=== PATIENT | male | born 1945 | race Caucasian/White ===

== ENCOUNTER 2016-12-03 13:54 | Outpatient (CLI) | payer MEDICARE, OTHER | END 2016-12-03 13:55 | disposition home or self-care (01) | DX: I10 Essential (primary) hypertension (principal); E87.1 Hypo-osmolality and hyponatremia; I25.10 Atherosclerotic heart disease of native coronary artery without angina pectoris ==

== ENCOUNTER 2016-12-07 08:38 | Outpatient (CLI) | payer MEDICARE, OTHER | END 2016-12-07 08:39 | disposition home or self-care (01) | DX: E87.1 Hypo-osmolality and hyponatremia (principal); E78.5 Hyperlipidemia, unspecified ==

== ENCOUNTER 2016-12-24 08:40 | Outpatient (CLI) | payer MEDICARE, OTHER | END 2016-12-24 08:41 | disposition home or self-care (01) | DX: E87.1 Hypo-osmolality and hyponatremia (principal); T50.905A Adverse effect of unspecified drugs, medicaments and biological substances, initial encounter; I44.7 Left bundle-branch block, unspecified; E78.00 Pure hypercholesterolemia, unspecified; I25.2 Old myocardial infarction; I25.119 Atherosclerotic heart disease of native coronary artery with unspecified angina pectoris ==

== ENCOUNTER 2017-03-11 08:47 | Outpatient (CLI) | payer MEDICARE, OTHER | END 2017-03-11 08:48 | disposition home or self-care (01) | DX: E87.1 Hypo-osmolality and hyponatremia (principal); E78.00 Pure hypercholesterolemia, unspecified; T50.905A Adverse effect of unspecified drugs, medicaments and biological substances, initial encounter; I44.7 Left bundle-branch block, unspecified; I25.119 Atherosclerotic heart disease of native coronary artery with unspecified angina pectoris ==

== ENCOUNTER 2017-12-05 08:00 | Outpatient (CLI) | payer MEDICARE, OTHER ==
[2017-12-05 13:09] LABS: ALT ALANINE AMINOTRANSFERASE 14 IU/L (10-60); AST ASPARTATE AMINOTRANSFERASE 21 IU/L (10-42); BUN - BLOOD UREA NITROGEN 10 mg/dL (6-20); CALCIUM 8.9 mg/dL (8.5-10.3); CARBON DIOXIDE - CO2 27 mmol/L (21-32); CHLORIDE 95 mmol/L (101-111); CHOL/HDL RATIO 2.8 (<5.0); CHOLESTEROL 148 mg/dL; CREATININE 0.9 mg/dL (0.6-1.2); GFR - MDRD 83 (>89); GLUCOSE 98 mg/dL (70-100); HDL CHOLESTEROL 53 mg/dL; LDL CHOLESTEROL,CALCULATED 82 mg/dL; LDL/HDL RATIO 1.5 (<3.6); SODIUM 129 mmol/L (135-145); VLDL CHOLESTEROL 13 mg/dL
== END 2017-12-05 08:01 | disposition home or self-care (01) ==
LOC: LAB.WCP 08:00
PROVIDERS: ATTEND Internal Medicine Cardiovascular Disease
DX: E78.00 Pure hypercholesterolemia, unspecified (principal)
CPT/HCPCS: 36415; 80048; 80061; 84450; 84460

== ENCOUNTER 2018-08-13 09:06 | Outpatient (CLI) | payer MEDICARE, OTHER ==
--- NOTE | 2018-08-13 11:48 | MRI Report ---
Reason: OTHER SPECIFIED JOINT DISORDERS, RIGHT KNEE Procedure Date: 08/13/2018 Accession Number: [id number] / [id number] Procedure: MRI - Knee RT W/O CPT Code: FULL RESULT: EXAM: RIGHT KNEE MRI WITHOUT CONTRAST EXAM DATE: 08/13/2018 10:52 AM. CLINICAL HISTORY: Other specified joint disorders, right knee. COMPARISON: Right knee radiographs 07/23/2018. TECHNIQUE: Multiplanar, multisequence T1-weighted and fluid-sensitive sequences of the knee without contrast. Other: None. FINDINGS: Bones: Small degenerative subcortical cyst in the medial femoral epicondyle. Alignment normal. No fracture or marrow edema. 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 Medial Meniscus: The medial meniscus is intact. Lateral Meniscus: The lateral meniscus is intact. Cruciate Ligaments: The anterior and posterior cruciate ligaments are intact. Collateral Ligaments: The medial collateral and lateral collateral ligamentous structures are intact. Tendons: The quadriceps, patellar, semimembranosus, and popliteus tendons are unremarkable. Musculature: No edema or fatty atrophy. Soft Tissues: Again seen is a 5 x 3 cm calcified lesion in the infrapatellar bursa with adjacent soft tissue edema, unchanged from prior x-rays and consistent with calcific infrapatellar bursitis. No significant joint effusion. IMPRESSION: 1. Stable 5 x 3 cm calcified lesion consistent with infrapatellar calcified bursitis. 2. No evidence of internal derangement. 3. 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 [facility] MUSCULOSKELETAL RADIOLOGY SECTION
== END 2018-08-13 09:07 | disposition home or self-care (01) ==
LOC: DI 09:06
PROVIDERS: ATTEND Orthopaedic Surgery Sports Medicine
DX: M70.51 Other bursitis of knee, right knee (principal); M94.261 Chondromalacia, right knee

== ENCOUNTER 2018-10-01 11:04 | Outpatient (CLI) | payer MEDICARE, OTHER ==
[2018-10-01 18:48] LABS: BASOPHILS % (AUTO) 0.8 %; EOSINOPHILS # (AUTO) 0.1 10^3/uL (0.0-0.7); EOSINOPHILS % (AUTO) 1.7 %; HGB - HEMOGLOBIN 13.7 g/dL (14.0-18.0); LYMPHOCYTES # (AUTO) 1.5 10^3/uL (1.5-3.5); LYMPHOCYTES % (AUTO) 37.2 %; MEAN CORPUSCULAR HEMOGLOBIN 30.9 pg (27.0-31.0); MEAN CORPUSCULAR VOLUME 90.8 fL (80.0-94.0); MEAN PLATELET VOLUME 8.5 fL (7.4-11.4); MONOCYTES # (AUTO) 0.5 10^3/uL (0.0-1.0); MONOCYTES % (AUTO) 12.4 %; NEUTROPHILS % (AUTO) 47.9 %; PLT - PLATELET COUNT 209 10^3/uL (130-450); RED BLOOD COUNT 4.43 10^6/uL (4.70-6.10); RED CELL DISTRIBUTION WIDTH 13.3 % (12.0-15.0); WHITE BLOOD COUNT 4.1 x10^3/uL (4.8-10.8)
[2018-10-01 19:14] LABS: ALBUMIN 3.8 g/dL (3.2-5.5); ALBUMIN/GLOBULIN RATIO 1.3 (1.0-2.2); BILIRUBIN,TOTAL 0.8 mg/dL (0.2-1.0); CALCIUM 8.7 mg/dL (8.5-10.3); CREATININE 0.9 mg/dL (0.6-1.2); TOTAL PROTEIN 6.7 g/dL (6.7-8.2)
== END 2018-10-01 23:59 | disposition home or self-care (01) ==
LOC: LAB.WCP 11:04
PROVIDERS: ATTEND Family Medicine
DX: M79.10 Myalgia, unspecified site (principal)
CPT/HCPCS: 36415; 80053; 82550; 82553; 85025

== ENCOUNTER 2018-12-19 08:05 | Outpatient (CLI) | payer MEDICARE, OTHER ==
[2018-12-19 08:43] LABS: CHOL/HDL RATIO 3.9 (<5.0); CHOLESTEROL 205 mg/dL; HDL CHOLESTEROL 52 mg/dL; LDL CHOLESTEROL,CALCULATED 142 mg/dL; LDL/HDL RATIO 2.7 (<3.6); VLDL CHOLESTEROL 11 mg/dL
== END 2018-12-19 08:06 | disposition home or self-care (01) ==
LOC: LAB 08:05
PROVIDERS: ATTEND Internal Medicine Cardiovascular Disease
DX: E78.00 Pure hypercholesterolemia, unspecified (principal); I25.119 Atherosclerotic heart disease of native coronary artery with unspecified angina pectoris
CPT/HCPCS: 36415; 80061; 83721

== ENCOUNTER 2019-01-05 08:32 | Outpatient (CLI) | payer MEDICARE, OTHER ==
[2019-01-05 08:44] LABS: BASOPHILS % (AUTO) 0.9 %; EOSINOPHILS # (AUTO) 0.1 10^3/uL (0.0-0.7); EOSINOPHILS % (AUTO) 2.2 %; HGB - HEMOGLOBIN 13.7 g/dL (14.0-18.0); LYMPHOCYTES # (AUTO) 1.4 10^3/uL (1.5-3.5); LYMPHOCYTES % (AUTO) 34.8 %; MEAN CORPUSCULAR HEMOGLOBIN 30.8 pg (27.0-31.0); MEAN CORPUSCULAR HGB CONC 34.3 g/dL (32.0-36.0); MEAN CORPUSCULAR VOLUME 89.7 fL (80.0-94.0); MEAN PLATELET VOLUME 7.4 fL (7.4-11.4); MONOCYTES # (AUTO) 0.5 10^3/uL (0.0-1.0); MONOCYTES % (AUTO) 13.9 %; NEUTROPHILS # (AUTO) 1.9 10^3/uL (1.5-6.6); NEUTROPHILS % (AUTO) 48.2 %; PLT - PLATELET COUNT 191 10^3/uL (130-450); RED BLOOD COUNT 4.46 10^6/uL (4.70-6.10); WHITE BLOOD COUNT 3.9 x10^3/uL (4.8-10.8)
[2019-01-05 09:03] LABS: BUN - BLOOD UREA NITROGEN 12 mg/dL (6-20); CALCIUM 8.7 mg/dL (8.5-10.3); CARBON DIOXIDE - CO2 27 mmol/L (21-32); CHLORIDE 94 mmol/L (101-111); CHOL/HDL RATIO 3.1 (<5.0); CHOLESTEROL 153 mg/dL; CREATININE 0.9 mg/dL (0.6-1.2); GFR - MDRD 83 (>89); GLUCOSE 100 mg/dL (70-100); HDL CHOLESTEROL 50 mg/dL; LDL CHOLESTEROL,CALCULATED 94 mg/dL; LDL/HDL RATIO 1.9 (<3.6); SODIUM 129 mmol/L (135-145); VLDL CHOLESTEROL 9 mg/dL
== END 2019-01-05 08:33 | disposition home or self-care (01) ==
LOC: LAB 08:32
PROVIDERS: ATTEND Internal Medicine Cardiovascular Disease
DX: E78.00 Pure hypercholesterolemia, unspecified (principal); I10 Essential (primary) hypertension; I25.119 Atherosclerotic heart disease of native coronary artery with unspecified angina pectoris; I44.7 Left bundle-branch block, unspecified; R07.89 Other chest pain; T50.905A Adverse effect of unspecified drugs, medicaments and biological substances, initial encounter
CPT/HCPCS: 36415; 80048; 80061; 83721; 85025

== ENCOUNTER 2019-02-17 07:48 | Outpatient (CLI) | payer MEDICARE, OTHER ==
[2019-02-17 08:26] LABS: ALT ALANINE AMINOTRANSFERASE 18 IU/L (10-60); CHOL/HDL RATIO 2.5 (<5.0); CHOLESTEROL 144 mg/dL; HDL CHOLESTEROL 58 mg/dL; LDL CHOLESTEROL,CALCULATED 78 mg/dL; LDL/HDL RATIO 1.3 (<3.6); VLDL CHOLESTEROL 8 mg/dL
== END 2019-02-17 07:49 | disposition home or self-care (01) ==
LOC: LAB 07:48
PROVIDERS: ATTEND Internal Medicine Cardiovascular Disease
DX: E78.00 Pure hypercholesterolemia, unspecified (principal); I10 Essential (primary) hypertension; I25.119 Atherosclerotic heart disease of native coronary artery with unspecified angina pectoris; I44.7 Left bundle-branch block, unspecified
CPT/HCPCS: 36415; 80061; 83721; 84460

== ENCOUNTER 2020-01-01 11:59 | Outpatient (CLI) | payer MEDICARE, OTHER ==
--- NOTE | 2020-01-01 15:56 | XRAY Report ---
Reason: PARONYCHIA, FINGER Procedure Date: 01/01/2020 Accession Number: [id number] / [id number] Procedure: XR - Hand 3 View LT CPT Code: Final Report FULL RESULT: EXAM: LEFT HAND RADIOGRAPHY EXAM DATE: 01/01/2020 12:10 PM. CLINICAL HISTORY: PARONYCHIA, FINGER. COMPARISON: None. TECHNIQUE: 3 views. FINDINGS: Bones: Normal. No fractures or bone lesions. Joints: Mild degenerative changes in the DIP joint of the fifth digit. Soft Tissues: Normal. No soft tissue swelling. IMPRESSION: Mild degenerative changes in the DIP joint of the fifth digit. [facility]
== END 2020-01-01 12:00 | disposition home or self-care (01) ==
LOC: DI 11:59
PROVIDERS: ATTEND Family Medicine
DX: M19.042 Primary osteoarthritis, left hand (principal)

== ENCOUNTER 2024-03-13 08:00 | Outpatient (CLI) | payer MEDICARE, OTHER ==
--- NOTE | 2024-03-13 11:47 | XRAY Report ---
PROCEDURE: Chest 2V INDICATIONS: DYSPNEA ON EXERTION/WHEEZING/COUGH TECHNIQUE: 2 views of the chest were acquired. COMPARISON: Chest x-ray 10/05/2016 FINDINGS: Surgical changes and devices: Sternal wires. Lungs and pleura: Minimal increased vascularity. Mediastinum: Mediastinal contours appear normal. Heart size is mildly prominent. Bones and chest wall: No suspicious bony lesions. Overlying soft tissues appear unremarkable. IMPRESSION: Minimal increased vascularity suggestive of edema. Reviewed by: Glenny Green MD on 03/13/2024 11:45 AM PDT Approved by: Glenny Green MD on 03/13/2024 11:45 AM PDT Station ID: [id number]
== END 2024-03-13 23:59 | disposition home or self-care (01) ==
LOC: DI.S 08:00
PROVIDERS: ATTEND Registered Nurse
DX: R06.09 Other forms of dyspnea (principal); R06.2 Wheezing; R05.1 Acute cough

== ENCOUNTER 2024-05-11 08:00 | Outpatient (CLI) | payer MEDICARE, OTHER | END 2024-05-11 23:59 | disposition home or self-care (01) | LOC: LAB.S 08:00 | PROVIDERS: ATTEND Physician Assistant | DX: R30.0 Dysuria (principal) | CPT/HCPCS: 87077; 87086; 87181 ==

== ENCOUNTER 2024-05-22 07:00 | Outpatient (CLI) | payer MEDICARE, OTHER ==
[2024-05-22 20:06] LABS: BILIRUBIN,URINE NEGATIVE (NEGATIVE); GLUCOSE, URINE (UA) NEGATIVE (NEGATIVE); KETONES,URINE (UA) NEGATIVE (NEGATIVE); LEUKOCYTE ESTERASE, URINE NEGATIVE (NEGATIVE); NITRITE,URINE NEGATIVE (NEGATIVE); OCCULT BLOOD,URINE NEGATIVE (NEGATIVE); PH,URINE 6.5 PH (5.0-7.5); PROTEIN,URINE NEGATIVE (NEGATIVE); UROBILINOGEN,URINE 0.2 (NORMAL) E.U./dL (NORMAL)
[2024-05-22 20:08] LABS: CLARITY,URINE CLEAR (CLEAR)
[2024-05-22 20:20] LABS: RBC,URINE 0-5 /HPF (0-5); WBC,URINE 0-3 /HPF (0-3)
[2024-05-22 20:21] LABS: BACTERIA,URINE None Seen /HPF (None Seen); SQUAMOUS EPITHELIAL CELL,UR NONE SEEN (<= Few)
== END 2024-05-22 23:59 | disposition home or self-care (01) ==
LOC: LAB.S 07:00
PROVIDERS: ATTEND Emergency Medicine
DX: N28.89 Other specified disorders of kidney and ureter (principal)
CPT/HCPCS: 81001; 87086